=== PATIENT | female | born 1995 | race Caucasian/White ===

== ENCOUNTER 2017-04-08 19:29 | Emergency (ER) | payer MEDICAID ==
[~2017-04-08] VITALS: Ht 154.9 cm; Wt 68.2 kg
[2017-04-08 19:30] VITALS: BP 132/96
== END 2017-04-08 22:30 | disposition left against medical advice (07) ==
LOC: ER 19:47
DX: Z53.21 Procedure and treatment not carried out due to patient leaving prior to being seen by health care provider (principal); F41.9 Anxiety disorder, unspecified; J45.909 Unspecified asthma, uncomplicated

== ENCOUNTER 2018-02-12 22:34 | Inpatient (IN) | payer MEDICAID ==
[~2018-02-12] VITALS: Ht 154.9 cm; Wt 76.2 kg
[2018-02-13] MEDS ORDERED: MISOPROSTOL 100MCG TABLET VG SCH (00:15)
[2018-02-13] MEDS ORDERED: LIDOCAINE HCL 1% 20ML VIAL (Pyxis) INJ INFIL SCH (00:15)
[2018-02-13] MEDS ORDERED: METHYLERGONOVINE MALEATE 0.2 MG/ML IM PRN (00:15)
[2018-02-13] MEDS ORDERED: CARBOPROST TROMETHAMINE 250 MCG/ML AMPUL IM PRN (00:15)
[2018-02-13] MEDS ORDERED: NALOXONE HCL 0.4 MG/ML 1ML VIAL IM PRN (00:15)
[2018-02-13] MEDS ORDERED: PENICILLIN G POTASSIUM 5 MMU in DEXT 5% WATER 100 ML IV SCH ×2 (00:30→01:00)
[2018-02-13] MEDS ORDERED: BUTORPHANOL TARTRATE 2 MG/ML VIAL IV PRN (00:45)
[2018-02-13] MEDS ORDERED: CITRIC ACID/SODIUM CITRATE SOLN 30ML UDC PO SCH (00:45)
[2018-02-13 00:57] LABS: CLARITY URINE CLEAR (CLEAR); COLOR URINE YELLOW (YELLOW); KETONES URINE NEGATIVE (NEGATIVE); LEUKOCYTE ESTERASE URINE TRACE (NEGATIVE); NITRITE URINE NEGATIVE (NEGATIVE); OCCULT BLOOD URINE TRACE (NEGATIVE); PROTEIN URINE 4+ (NEGATIVE); SPECIFIC GRAVITY URINE 1.015 (1.005-1.030)
[2018-02-13] MEDS: LACTATED RINGERS 1,000 ML IV SCH ×4 (01:02→15:51)
[2018-02-13] MEDS: DEXT 5%/LR + PITOCIN 20UNITS/L 1,000 ML IV SCH ×2 (01:08→22:23)
[2018-02-13 01:12] LABS: *AMPHETAMINES SCREEN URINE NEGATIVE (NEGATIVE); *BARBITURATES SCREEN URINE NEGATIVE (NEGATIVE); *BENZODIAZEPINES SCREEN URINE NEGATIVE (NEGATIVE); *COCAINE SCREEN URINE NEGATIVE (NEGATIVE); METHADONE URINE SCREEN NEGATIVE (NEGATIVE); OPIATES URINE SCREEN NEGATIVE (NEGATIVE)
[2018-02-13 01:13] LABS: CANNABINOID URINE SCREEN NEGATIVE (NEGATIVE); PHENCYCLIDINE URINE SCREEN NEGATIVE (NEGATIVE)
[2018-02-13 01:34] LABS: BASOPHILS % 1.2 % (0.0-2.0); EOSINOPHILS % 1.1 % (0.0-5.0); HEMATOCRIT. 31.2 % (36.0-48.0); HEMOGLOBIN. 10.1 g/dL (12.0-16.0); LYMPHOCYTES % 35.7 % (20.0-50.0); MEAN CORPUSCULAR HEMOGLOBIN 25.2 pg (28.0-32.0); MEAN CORPUSCULAR VOLUME 77.9 fL (81.0-99.0); MEAN PLATELET VOLUME 9.7 fl (7.4-10.4); MONOCYTES % 6.6 % (2.0-8.0); NEUTROPHILS % 55.4 % (40.0-76.0); PLATELET 294 x1000/uL (130-400); RED BLOOD CELL COUNT 4.01 mill/uL (4.2-5.4); RED CELL DISTRIBUTION WIDTH 15.3 % (11.6-14.6)
[2018-02-13 01:45] LABS: INR 0.9; PARTIAL THROMBOPLASTIN TIME 23.9 sec (23.4-31.0); PROTHROMBIN TIME 9.2 sec (9.1-11.1)
[2018-02-13] MEDS: PENICILLIN G POTASSIUM 2.5 MMU in DEXTROSE 5% WATER 50 ML IV SCH ×4 (05:00→22:27)
[2018-02-13] MEDS ORDERED: PENICILLIN G POTASSIUM 2.5 MMU in DEXTROSE 5% WATER 50 ML IV SCH (05:00)
[2018-02-13] MEDS ORDERED: DIPHENHYDRAMINE 50MG/ML VIAL IV SCH (05:08)
[2018-02-13] MEDS ORDERED: BUPIVACAINE HCL/PF 0.25% (2.5MG/ML) 10ML ONE ×3 (07:33→15:54)
[2018-02-13] MEDS ORDERED: FENTANYL CITRATE/PF 50MCG/ML 2ML VIAL ONE ×2 (07:33→15:55)
[2018-02-13] MEDS ORDERED: BUPIVACAINE HCL/NS/PF EPIDURAL 100 ML EP ONE ×3 (07:33→15:54)
[2018-02-13] MEDS ORDERED: DIPHENHYDRAMINE 50MG/ML VIAL IM PRN (08:00)
[2018-02-13] MEDS ORDERED: ONDANSETRON HCL 4MG/2ML VIAL IV PRN (08:00)
[2018-02-13] MEDS ORDERED: NALOXONE HCL 0.4 MG/ML 1ML VIAL IV PRN (08:00)
[2018-02-13] MEDS ORDERED: ONDANSETRON HCL 4MG/2ML VIAL IM PRN (08:00)
[2018-02-13] MEDS ORDERED: DIPHENHYDRAMINE 50MG/ML VIAL IV PRN (08:00)
[2018-02-13 11:26] LABS: RUBELLA IGG 111.2 IU/mL (4.99-10)
[2018-02-13 11:27] LABS: HEPATITIS B SURFACE ANTIGEN NEGATIVE
[2018-02-13] MEDS ORDERED: DEXT 5%/LR + PITOCIN 20UNITS/L 1,000 ML IV SCH (20:52)
[2018-02-13] MEDS ORDERED: BISACODYL 10MG SUPP PR PRN (21:00)
[2018-02-13] MEDS ORDERED: IBUPROFEN 400MG TABLET PO PRN (21:00)
[2018-02-13] MEDS ORDERED: DOCUSATE SODIUM 100MG CAPSULE PO SCH (21:00)
[2018-02-13] MEDS ORDERED: LANOLIN OINT 0.25 GM TUBE TOP PRN (21:00)
[2018-02-13] MEDS ORDERED: ACETAMINOPHEN WITH CODEINE 300/30MG TABLET PO PRN ×2 (21:00)
[2018-02-13] MEDS ORDERED: BENZOCAINE/LANOLIN/ALOE VERA SPRAY TOP PRN (21:00)
[2018-02-13] MEDS ORDERED: HEMORRHOIDAL SUPP PR PRN (21:00)
[2018-02-13] MEDS ORDERED: PREN1TAB78 MT (22:21)
[2018-02-13 23:00] VITALS: BP 119/63
[2018-02-14] VITALS: BP 123/75
[2018-02-14 08:00] VITALS: BP 111/44
[2018-02-14] MEDS: SIMETHICONE 80MG TABLET CHEW PO SCH ×3 (08:14→19:05)
[2018-02-14] MEDS: PRENATAL VIT/FE FUMARATE/FA TABLET PO SCH (08:14)
[2018-02-14] MEDS: MAGNESIUM/ALUMINUM HYDROXIDE/SIMETHICONE 30ML UDC PO SCH ×3 (08:14→19:05)
[2018-02-14 10:06] LABS: BASOPHILS % 0.6 % (0.0-2.0); EOSINOPHILS % 0.1 % (0.0-5.0); HEMATOCRIT. 22.5 % (36.0-48.0); HEMOGLOBIN. 7.4 g/dL (12.0-16.0); MEAN CORPUSCULAR HEMOGLOBIN 25.8 pg (28.0-32.0); MEAN CORPUSCULAR VOLUME 78.4 fL (81.0-99.0); MEAN PLATELET VOLUME 9.1 fl (7.4-10.4); MONOCYTES % 6.1 % (2.0-8.0); NEUTROPHILS % 71.2 % (40.0-76.0); PLATELET 215 x1000/uL (130-400); RED BLOOD CELL COUNT 2.87 mill/uL (4.2-5.4); RED CELL DISTRIBUTION WIDTH 15.3 % (11.6-14.6)
[2018-02-14] MEDS: FERROUS SULFATE 325MG TABLET PO SCH ×2 (12:59→19:05)
[2018-02-14 16:00] VITALS: BP 121/79
[2018-02-14 19:30] VITALS: BP 114/48
[2018-02-14 23:30] VITALS: BP 118/72
[2018-02-15 07:42] VITALS: BP 119/63
[2018-02-15] MEDS: SIMETHICONE 80MG TABLET CHEW PO SCH (08:05)
[2018-02-15] MEDS: PRENATAL VIT/FE FUMARATE/FA TABLET PO SCH (08:23)
[2018-02-15] MEDS: MAGNESIUM/ALUMINUM HYDROXIDE/SIMETHICONE 30ML UDC PO SCH (08:23)
[2018-02-15] MEDS: FERROUS SULFATE 325MG TABLET PO SCH (08:23)
== END 2018-02-15 12:20 | disposition home or self-care (01) | DRG 560 ==
LOC: L&D 22:34 → OBSVTOIN 22:34 → 7EST PP/OB 02-13 22:42
PROVIDERS: ADMIT Obstetrics & Gynecology; ATTEND Obstetrics & Gynecology
PROC: 0KQM0ZZ Repair Perineum Muscle, Open Approach (ICD-10-PCS; 2018-02-13)
PROC: 3E0R3BZ Introduction of Anesthetic Agent into Spinal Canal, Percutaneous Approach (ICD-10-PCS; 2018-02-13)
PROC: 00HU33Z Insertion of Infusion Device into Spinal Canal, Percutaneous Approach (ICD-10-PCS; 2018-02-13)
PROC: 10D07Z6 Extraction of Products of Conception, Vacuum, Via Natural or Artificial Opening (ICD-10-PCS; principal; 2018-02-13 20:16)
DX: O69.81X0 Labor and delivery complicated by cord around neck, without compression, not applicable or unspecified (principal); O70.9 Perineal laceration during delivery, unspecified; Z3A.39 39 weeks gestation of pregnancy; Z37.0 Single live birth
CPT/HCPCS: 36415; 80305; 81003; 85025; 85610; 85730; 86592; 86703; 86762; 86850; 86900; 87340; J0595; J1200; J2405; J2540; J2590; J3010; J3490; J7060; J7120; A4315

== ENCOUNTER 2018-08-20 01:57 | Emergency (ER) | payer MEDICAID ==
[~2018-08-20] VITALS: Ht 154.9 cm; Wt 75.0 kg
[2018-08-20 06:40] VITALS: BP 99/45
== END 2018-08-20 06:43 | disposition home or self-care (01) ==
LOC: ER 01:57
DX: R07.9 Chest pain, unspecified (principal); F41.9 Anxiety disorder, unspecified; J45.909 Unspecified asthma, uncomplicated
CPT/HCPCS: 81025; 93005; 99283; Z7610